=== PATIENT | female | born 1995 | race Caucasian/White ===

== ENCOUNTER 2022-01-19 19:46 | Emergency (ER) | payer OTHER, SELFPAY ==
--- NOTE | 2022-01-19 20:09 | ED.FEMALEGU ---
HPI - Female Genitourinary General Stated complaint: /cramping/bleeding Time Seen by Provider: 01/19/22 20:09 Source: patient and RN notes reviewed Mode of arrival: ambulatory Limitations: no limitations History of Present Illness HPI Narrative: Patient thinks she is about 6 weeks . She has been having some cramping in her pelvis and some mild to moderate vaginal bleeding that started 1-1/2 hours ago prior to arrival. She is scheduled to see her acoustic intelligence specialist Saturday and had a positive test yesterday. MD elicited complaint: vaginal bleeding Onset (ago): hour(s) (1.5) Location of symptoms: pelvis Severity: moderate Female Urogenital Radiation: Non-Radiating Quality of pain: cramping Consistency: intermittent Vaginal bleeding: moderate and bright red Exacerbating factors: none Relieving factors: none Associated symptoms: abdominal pain Treatment prior to arrival: none Sexual activity: Yes Patient : Yes Possible : at home test positive ( yesterday) Date of Last Menstrual Period: 12/06/21 Related Data : 1 Para: 0 Total number of abortions (spontaneous and elective): 0 Home Medications Medication Instructions Recorded Confirmed No Home Medications 01/19/22 01/19/22 Allergies Allergy/AdvReac Type Severity Reaction Status Date / Time No Known Allergies Allergy Verified 01/19/22 20:32 Review of Systems Review of Systems: All systems reviewed & are unremarkable except as noted in HPI and below PMFSH Past Medical History Medical History (Updated 01/19/22 @ 20:[address] MD) Asthma Surgical History Surgical History (Updated 01/19/22 @ 20:[address] MD) No pertinent past surgical history Social History Social History (Updated 01/19/22 @ 20:[address] MD) Smoking packs per day: 0.5 Smoking cigarettes per day: 10.0 Smoking status: Current every day smoker Tobacco type: cigarettes Alcohol intake: never Substance use: never Exam Const: General: healthy appearing, no acute distress and alert Nutritional Appearance: well nourished Orientation/consciousness: patient oriented x3 Limitations: no limitations Other: female nurse in room during examination. HENMT: Head: normal to inspection Ears: external ears normal Eyes: Conjunctivae: conjunctivae normal Pupils: Equal, round and reactive pupils present EOM: EOMs intact bilaterally Neck: Neck: normal visual inspection Resp: Effort & Inspection: normal respiratory effort Auscultation: clear to auscultation bilaterally Cardio: Rate: regular rate Rhythm: regular rhythm GI: GI Palp: Yes Soft to palpation, Yes Tenderness to palpation present (GI) ( Moderate in the pelvic area) and Yes Guarding due to palpation present (GI) Auscultation: normal bowel sounds : External Female Exam: normal external appearance Speculum Exam - Vagina: normal appearance of the vagina and abnormal vaginal discharge bloody Speculum Exam - Cervix: normal appearance of the cervix and Cervical os closed Bimanual exam- vagina & uterus: no cervical motion tenderness Bimanual Exam- Adnexa, other: adnexal mass and No adnexal tenderness Back/Spine/Pelvis: Cervical Spine: cervical ROM normal Thoracic/Lumbar Spine: thoraco-lumbar ROM normal Skin: General skin exam: normal color Rashes: no rashes Neuro: General: patient oriented x3, moves all extremities, no focal motor deficits and CN's II-XI intact bilaterally Speech: normal speech Gait exam (Neuro): Normal gait present Extrem: General: normal to inspection and no clubbing, cyanosis or edema Psych: Appearance: grossly normal and well kempt Affect: normal affect Attitude: cooperative Discharge Plan Discharge Clinical Impression: , threatened Patient Disposition: Home, Self-Care Condition: Stable Instructions: Threatened Miscarriage (ED) Additional Instructions: keep your follow-up appointment with
[2022-01-19 20:36] VITALS: BP 126/80; PULSE 91; RESP 16; TEMP 36.1; O2SAT 100
[2022-01-19 20:46] VITALS: BP 120/80; PULSE 62; RESP 18; TEMP 36.6; O2SAT 100
== END 2022-01-19 20:47 | disposition home or self-care (01) ==
PROVIDERS: Emergency Provider Emergency Medicine
DX: O20.0 Threatened abortion (principal); F17.200 Nicotine dependence, unspecified, uncomplicated
CPT/HCPCS: 99281